=== PATIENT | female | born 1965 | race Caucasian/White ===

== ENCOUNTER → 2017-07-16 | Outpatient (CLI) | payer OTHER, BC ==
[~2017-07-16] MED LIST: AMLO5 PO; ASPI81EC PO; CYCL10 PO; ESTR2 PO; FLUT.05NI; Fish Oil 10001000 MG PO; IBUP800 PO; LISI20 PO; MEDR2.5 PO; METO25 PO; OMEG1CAP30 PO; OMEP20ER PO; OXYC1TAB11 PO; VITAMIN D5000 UNI1 PO; [UNRECOGNIZED DRUG - OTHER]
[2017-07-18 12:58] LABS: HPV Genotype 16 Not Detected (NOTDET); HPV Genotype 18 Not Detected (NOTDET)
[2017-07-25 10:51] LABS: HPV High Risk Other Not Detected (NOTDET)
== END ==
LOC: LAB SHORT 15:45 → OLS 15:45
PROVIDERS: Obstetrics & Gynecology Gynecology
DX: Z12.72 Encounter for screening for malignant neoplasm of vagina (principal)
CPT/HCPCS: 87624; G0123

== ENCOUNTER 2018-10-09 13:55 | Emergency (ER) | payer OTHER ==
[~2018-10-09] VITALS: Ht 157.5 cm; Wt 55.3 kg
[2018-10-09] MEDS ORDERED: Robaxin500 MG PO (16:00)
[2018-10-09] MEDS ORDERED: VOLTAREN100 GM TOP (16:00)
== END 2018-10-09 16:11 | disposition home or self-care (01) ==
LOC: ER 13:55
DX: M79.605 Pain in left leg (principal); M54.6 Pain in thoracic spine; I10 Essential (primary) hypertension; F17.200 Nicotine dependence, unspecified, uncomplicated; Z79.82 Long term (current) use of aspirin; Z79.899 Other long term (current) drug therapy
CPT/HCPCS: 93971; 96372; 99283-25; J1100

== ENCOUNTER 2020-06-20 07:36 | Day surgery (SDC) | payer OTHER ==
[~2020-06-20] VITALS: Ht 157.5 cm; Wt 57.2 kg
[~2020-06-20 07:36] MED LIST changes: +AMLO10; +CYCL10; +ESOM20; +ESTR2; +IBUP800; +LINZESS290 MCG; +PARO20; +ROXICODONE15 MG; +Robaxin500 MG PO; +VOLTAREN100 GM TOP
--- NOTE | 2020-06-20 08:06 | NUR ---
06/20/20 0806 Mery Ron 1 TRY RIGHT HAND BLEW 2 TRY RIGHT UPPER ARM BLEW
== END 2020-06-20 09:24 | disposition home or self-care (01) ==
LOC: ORSCSDS 07:36
PROVIDERS: Student in an Organized Health Care Education/Training Program
PROC: 0DB98ZX Excision of Duodenum, Via Natural or Artificial Opening Endoscopic, Diagnostic (ICD-10-PCS; principal; 2020-06-20 08:45)
PROC: 0DB58ZX Excision of Esophagus, Via Natural or Artificial Opening Endoscopic, Diagnostic (ICD-10-PCS; principal; 2020-06-20 08:45)
PROC: 0DB68ZX Excision of Stomach, Via Natural or Artificial Opening Endoscopic, Diagnostic (ICD-10-PCS; principal; 2020-06-20 08:45)
PROC: 0DB48ZX Excision of Esophagogastric Junction, Via Natural or Artificial Opening Endoscopic, Diagnostic (ICD-10-PCS; principal; 2020-06-20 08:45)
DX: R14.0 Abdominal distension (gaseous) (principal); K31.9 Disease of stomach and duodenum, unspecified; K22.2 Esophageal obstruction; K29.70 Gastritis, unspecified, without bleeding; K44.9 Diaphragmatic hernia without obstruction or gangrene
CPT/HCPCS: 88305; 88342; J0461; J2405; J2704; J7120

== ENCOUNTER 2020-11-22 14:45 | Emergency (ER) | payer OTHER ==
[~2020-11-22] VITALS: Ht 157.5 cm; Wt 61.2 kg
[2020-11-22 17:31] LABS: BASOPHILS ABSOLUTE AUTO 0.04 K/mm3 (0.00-0.23); BASOPHILS PERCENT AUTO 1 % (0-2); EOSINOPHILS ABSOLUTE AUTO 0.22 K/mm3 (0.00-0.68); EOSINOPHILS PERCENT AUTO 3 % (0-6); Hematocrit 35.9 % (33.0-51.0); Hemoglobin 12.4 g/dL (11.5-16.0); IMMATURE GRAN ABSOLUTE AUTO 0.03 K/mm3 (0.00-0.10); IMMATURE GRAN PERCENT AUTO 0 % (0-1); LYMPHOCYTES ABSOLUTE AUTO 2.62 K/mm3 (0.84-5.20); LYMPHOCYTES PERCENT AUTO 39 % (21-46); MONOCYTES ABSOLUTE AUTO 0.58 K/mm3 (0.16-1.47); MONOCYTES PERCENT AUTO 9 % (4-13); Mean Corpuscular HGB 31.7 pg (26.0-34.0); Mean Corpuscular HGB Conc 34.5 g/dL (31.5-36.5); Mean Corpuscular Volume 92 fL (80-100); Mean Platelet Volume 9.7 fL (9.1-12.4); NEUTROPHILS PERCENT AUTO 49 % (41-73); Platelet Count 257 K/mm3 (150-400); RDW Coefficient Variation 13.1 % (11.7-14.2); RDW Standard Deviation 43.9 fL (35.1-46.3); Red Blood Cell Count 3.91 M/mm3 (3.80-5.20); White Blood Cell Count 6.79 K/mm3 (4.00-11.30)
[2020-11-22 17:53] LABS: Alanine Aminotransfer (ALT/SGP 17 U/L (12-78); Albumin, Blood 3.6 g/dL (3.4-5.0); Albumin/Globulin Ratio 1.4 (0.8-1.8); Alk Phos 49 U/L (50-136); Anion Gap 4 mmol/L (6-16); Aspartate Aminotrans (AST/SGOT 13 U/L (12-37); Bilirubin, Total 0.3 mg/dL (0.1-1.0); Blood Urea Nitrogen 10 mg/dL (8-24); Bun/Creatinine Ratio 17.8 (12.0-20.0); CO2, Blood 26 mmol/L (21-32); Calcium, Blood 8.8 mg/dL (8.5-10.1); Chloride, Blood 101 mmol/L (98-108); Creatinine, Blood 0.56 mg/dL (0.40-1.00); Globulin, Blood 2.6 g/dL (2.2-4.0); Glomerular Filtration Rate >60 (60-); Glucose, Blood 77 mg/dL (70-99); Potassium, Blood 3.9 mmol/L (3.5-5.5); Sodium, Blood 131 mmol/L (136-145); Total Protein, Blood 6.2 g/dL (6.4-8.2)
[2020-11-22 20:48] LABS: Source, Urine Clean Catch
[2020-11-22 20:53] LABS: Appearance, Urine Clear (Clear); Bilirubin, Urine Neg (Neg); Blood, Urine Neg (Neg); Color, Urine Yellow (P-Yellow); Glucose Qualitative, Urine Neg (Neg); Ketones, Urine Neg (Neg); Leukocyte Esterase, Urine Neg (Neg); Nitrite, Urine Neg (Neg); Protein, Urine Neg (Neg); Specific Gravity, Urine 1.015 (1.003-1.022); Urobilinogen, Urine NORM (Normal)
== END 2020-11-22 20:49 | disposition home or self-care (01) ==
LOC: ER 14:45
PROVIDERS: Physician Assistant
DX: K59.00 Constipation, unspecified (principal); R11.0 Nausea; I10 Essential (primary) hypertension; F17.210 Nicotine dependence, cigarettes, uncomplicated; Z79.82 Long term (current) use of aspirin; Z79.899 Other long term (current) drug therapy
CPT/HCPCS: 74177; 80053; 81003; 83690; 85025; 99284-25; Q9967

== ENCOUNTER 2022-07-26 13:42 | Day surgery (SDC) | payer OTHER ==
[~2022-07-26] VITALS: Ht 157.5 cm; Wt 54.4 kg
[2022-07-26] MEDS ORDERED: LINZESS72 MCG (14:00)
== END 2022-07-26 15:20 | disposition home or self-care (01) ==
LOC: ORSCSDS 13:42
DX: R10.9 Unspecified abdominal pain (principal); I10 Essential (primary) hypertension; Z79.82 Long term (current) use of aspirin; F17.210 Nicotine dependence, cigarettes, uncomplicated; Z79.899 Other long term (current) drug therapy
CPT/HCPCS: 88305; 88342; J0330; J0461; J2001; J2405; J2704; J7120; Q9968

== ENCOUNTER 2023-12-13 09:06 | Day surgery (SDC) | payer OTHER ==
[~2023-12-13] VITALS: Ht 157.5 cm; Wt 58.9 kg
[~2023-12-13 09:06] MED LIST changes: +LINZESS72 MCG; +Lactated Ringer's 1,000 ML IV ONE; +propofoL 50 ML IV ONE
[2023-12-13] MEDS ORDERED: SUMA25 (09:45)
[2023-12-13] MEDS ORDERED: Cyclobenzaprine5 MG (09:45)
[2023-12-13] MEDS ORDERED: FISH OIL 1,0001 EA10 (09:46)
[2023-12-13] MEDS ORDERED: Lactated Ringer's 1,000 ML IV ONE (10:14)
--- NOTE | 2023-12-13 10:16 | NUR ---
12/13/23 Heriberto Huff PT STATES SHE IS WEARING CONTACTS AND SHE TYPICALLY SLEEPS WITH THEM IN WITH NO ISSUES. OKAY TO PROCEED WITH CONTACTS IN DURING PROCEDURE.
[2023-12-13 11:24] VITALS: BP 135/64
== END 2023-12-13 11:19 | disposition home or self-care (01) ==
LOC: ORSCSDS 09:06
PROVIDERS: Internal Medicine Gastroenterology
PROC: 0DJD8ZZ Inspection of Lower Intestinal Tract, Via Natural or Artificial Opening Endoscopic (ICD-10-PCS; principal; 2023-12-13 10:30)
DX: K59.03 Drug induced constipation (principal); K21.9 Gastro-esophageal reflux disease without esophagitis; F17.210 Nicotine dependence, cigarettes, uncomplicated; Z79.82 Long term (current) use of aspirin; Z79.899 Other long term (current) drug therapy; Z79.891 Long term (current) use of opiate analgesic
CPT/HCPCS: J2704; J7120